=== PATIENT | female | born 1945 | race Caucasian/White ===

== ENCOUNTER 2017-02-16 09:12 | Outpatient (CLI) | payer MEDICARE ==
[2017-02-16 11:56] LABS: #Basophils 0.1 thou/uL (0.0-0.2); #Eosinphils 0.2 thou/uL (0.0-0.7); #Lymphocytes 1.4 thou/uL (1.20-3.40); #Monocytes 0.4 thou/uL (0.11-0.59); #Neutrophils 2.7 thou/uL (1.40-6.50); %Basophils 1.1 % (0.0-1.0); %Eosinophils 3.8 % (0.0-10.0); %Lymphocytes 29.1 % (21.0-51.0); %Monocytes 8.5 % (0.0-10.0); %Neutrophils 57.4 % (42.0-75.0); Hemoglobin 12.3 g/dL (12.0-16.0); Mean Corpuscular HGB CONC 31.5 g/dL (32.0-36.0); Mean Corpuscular Hemoglobin 31.7 pg (27.0-31.0); Mean Platelet Volume 6.9 fL (7.4-10.4); Platelet Count 226 thou/uL (130-400); RBC Distribution Width 13.5 % (11.5-14.5); Red Blood Cell (RBC) Count 3.87 mill/uL (4.20-5.40); White Blood Cell (WBC) Count 4.7 thou/uL (4.8-10.8)
[2017-02-16 12:29] LABS: Hemoglobin A1c 5.8 % (4.0-6.0)
[2017-02-16 12:31] LABS: ALT (SGPT) 21 U/L (8-55); AST (SGOT) 26 U/L (5-34); Albumin 4.7 g/dL (3.4-4.8); Alkaline Phosphatase 64 U/L (40-150); Anion Gap 19 mmol/L (10-20); BUN (Urea Nitrogen) 16 mg/dL (9.8-20.1); Bilirubin, Direct 0.2 mg/dL (0.1-0.3); Bilirubin, Total 0.5 mg/dL (0.2-1.2); Calc. Creatinine Clearance 0 mL/min (70-130); Calcium 9.6 mg/dL (7.8-10.44); Carbon Dioxide 25 mmol/L (23-31); Cardiac Risk 2.8 (Less than 4.5); Chloride 103 mmol/L (98-107); Cholesterol 227 mg/dl (< 200 Desired); Estimated GFR-MDRD 79; Glucose 100 mg/dL (83-110); HDL Cholesterol 81 mg/dL (>60 Neg Risk); LDL Cholesterol, Calculated 136 mg/dL; Potassium 4.8 mmol/L (3.5-5.1); Protein, Total 7.4 g/dL (6.0-8.3); Sodium 142 mmol/L (136-145); Triglycerides 49 mg/dL (Less than 150)
== END 2017-02-16 09:13 | disposition home or self-care (01) ==
LOC: NAVSJIPCSP 09:12
PROVIDERS: ATTEND Family Medicine
DX: E78.00 Pure hypercholesterolemia, unspecified (principal); I10 Essential (primary) hypertension; J30.9 Allergic rhinitis, unspecified; K21.9 Gastro-esophageal reflux disease without esophagitis; J31.0 Chronic rhinitis; R31.9 Hematuria, unspecified; N39.0 Urinary tract infection, site not specified
CPT/HCPCS: 36415; 80048; 80061; 80076; 83036; 84443; 85025

== ENCOUNTER 2018-09-22 15:35 | Outpatient (CLI) | payer MEDICARE, OTHER ==
--- NOTE | 2018-09-22 15:52 | RAD ---
Right Ring finger 3 views HISTORY: Right finger injury. FINDINGS: Mild to moderate osteoarthritic changes. No acute osseous abnormalities are demonstrated. Projecting immediately lateral to the proximal interphalangeal joint is a very thin, linear radiopaqu e density, 0.1 cm length. This could represent an embedded foreign body (or a small avulsed osteophyte from the joint).
== END 2018-09-22 15:36 | disposition home or self-care (01) ==
LOC: NAV RAD 15:35
PROVIDERS: ATTEND Family Medicine
DX: S61.411A Laceration without foreign body of right hand, initial encounter (principal)

== ENCOUNTER 2020-02-18 13:47 | Emergency (ER) | payer MEDICARE, OTHER | END 2020-02-18 14:50 | disposition home or self-care (01) | LOC: NAV ERS 13:47 | DX: K59.00 Constipation, unspecified (principal); E78.5 Hyperlipidemia, unspecified; E78.00 Pure hypercholesterolemia, unspecified; I10 Essential (primary) hypertension; Z87.891 Personal history of nicotine dependence; Z79.899 Other long term (current) drug therapy | CPT/HCPCS: 99283 ==

== ENCOUNTER 2020-09-23 11:11 | Outpatient (CLI) | payer MEDICARE | END 2020-09-23 11:12 | disposition home or self-care (01) | LOC: NAV RAD 11:11 | PROVIDERS: ATTEND Family Medicine | DX: M54.32 Sciatica, left side (principal); M47.816 Spondylosis without myelopathy or radiculopathy, lumbar region | CPT/HCPCS: 72100 ==

== ENCOUNTER 2021-07-23 07:58 | Outpatient (CLI) | payer MEDICARE ==
[2021-07-23] MEDS ORDERED: Iopamidol 370 76% 100 ML VIAL ONE (09:00)
== END 2021-07-23 07:59 | disposition home or self-care (01) ==
LOC: NAV CT 07:58
PROVIDERS: ATTEND Family Medicine
DX: Z01.818 Encounter for other preprocedural examination (principal); K92.1 Melena; R19.7 Diarrhea, unspecified; R91.1 Solitary pulmonary nodule; K80.20 Calculus of gallbladder without cholecystitis without obstruction; N28.1 Cyst of kidney, acquired
CPT/HCPCS: 36415; 74177; 82565; Q9967

== ENCOUNTER 2021-07-31 08:00 | Outpatient (CLI) | payer MEDICARE ==
[2021-07-31] MEDS ORDERED: Iopamidol 370 76% 100 ML VIAL ONE (09:00)
== END 2021-07-31 08:01 | disposition home or self-care (01) ==
LOC: NAV CT 08:00
PROVIDERS: ATTEND Family Medicine
DX: R91.1 Solitary pulmonary nodule (principal)
CPT/HCPCS: 71260; Q9967

== ENCOUNTER 2023-01-14 12:28 | Outpatient (CLI) | payer MEDICARE | END 2023-01-14 12:29 | disposition home or self-care (01) | LOC: NAV RAD 12:28 | PROVIDERS: ATTEND Nurse Practitioner Family | DX: M25.572 Pain in left ankle and joints of left foot (principal); M79.672 Pain in left foot ==